=== PATIENT | male | born 1980 | race Asian ===

== ENCOUNTER 2018-07-13 15:18 | Emergency (ER) | payer SELFPAY ==
[~2018-07-13] VITALS: Ht 162.6 cm; Wt 82.6 kg
[2018-07-13 15:35] VITALS: BP 134/99; Ht 162.6 cm; Wt 82.6 kg
== END 2018-07-13 17:25 | disposition home or self-care (01) ==
LOC: ED 15:18
DX: S93.402A Sprain of unspecified ligament of left ankle, initial encounter (principal); S93.602A Unspecified sprain of left foot, initial encounter; X58.XXXA Exposure to other specified factors, initial encounter; Y93.89 Activity, other specified; Y92.89 Other specified places as the place of occurrence of the external cause; Y99.8 Other external cause status
CPT/HCPCS: 90715